=== PATIENT | male | born 1975 | race Caucasian/White ===

== ENCOUNTER 2017-08-01 06:56 | Inpatient (IN) | payer MEDICARE ==
[2017-07-24 14:20] LABS: BASOPHILS # (AUTO) 0.1 X10'3 (0-0.2); BASOPHILS % (AUTO) 1.2 % (0-1); EOSINOPHILS # (AUTO) 0.2 X10'3 (0-0.9); EOSINOPHILS % (AUTO) 2.8 % (0-6); LYMPHOCYTES # (AUTO) 1.7 X10'3 (1.1-4.8); LYMPHOCYTES % (AUTO) 25.5 % (21-51); MEAN CORPUSCULAR HEMOGLOBIN 34.2 PG (27.0-31.0); MEAN CORPUSCULAR VOLUME 94.9 FL (78-98); MEAN PLATELET VOLUME 7.4 FL (7.4-10.4); MONOCYTES # (AUTO) 0.5 X10'3 (0-0.9); MONOCYTES % (AUTO) 7.8 % (2-12); NEUTROPHILS # (AUTO) 4.1 X10'3 (1.8-7.7); NEUTROPHILS % (AUTO) 62.7 % (42-75); PRE OP HEMATOCRIT 45.8 % (42.0-52.0); PRE OP HEMOGLOBIN 16.5 g/dL (14.0-17.9); PRE OP PLATELET COUNT 239 X10'3 (140-440); RED BLOOD COUNT 4.83 X10'6 (4.70-6.10); RED CELL DISTRIBUTION WIDTH 14.3 % (11.5-14.5)
[2017-07-24 14:30] LABS: PRE OP PROTIME 10.4 SECONDS (9.0-12.0)
[2017-07-24 14:35] LABS: ALBUMIN 4.1 G/DL (3.4-5.0); ALBUMIN/GLOBULIN RATIO 1.4 (1.1-1.5); ALKALINE PHOSPHATASE 62 IU/L (46-116); BLOOD UREA NITROGEN 22 MG/DL (7-18); BUN/CREATININE RATIO 15.1 (5.4-32.0); CALCIUM 9.1 MG/DL (8.5-10.1); CHLORIDE 101 MMOL/L (99-107); CREATININE 1.46 MG/DL (0.60-1.10); PRE OP ANION GAP 7 (8-16); PRE OP AST 55 U/L (10-37); PRE OP BILIRUB, TOTAL 0.9 MG/DL (0.0-1.0); PRE OP GLUCOSE 85 MG/DL (70-104); PRE OP SODIUM 137 MMOL/L (135-145); TOTAL CARBON DIOXIDE 28.8 MMOL/L (24-32); eGFR 53 ML/MIN
[2017-07-24 14:38] LABS: PRE OP ALT 82 U/L (30-65)
[2017-07-24 15:13] LABS: PLATELET ESTIMATE NORMAL; SPHEROCYTES 1+
[2017-08-01] VITALS (33 sets, daily range): BP systolic 75–150; BP diastolic 42–70
[~2017-08-01] VITALS: Ht 190.5 cm; Wt 106.2 kg
[~2017-08-01 06:56] MED LIST: ASPI-974 PO; Cefazolin 2GM/100ML NS IVPB IV ONE; LISI-600 PO; PER10325T PO; VANCOMYCIN INJ 1000 MG in NORMAL SALINE 250ml IV.SOLN IV ONE; [UNRECOGNIZED DRUG - CODE] PO; famotidine 20mg tablet PO ONE
[2017-08-01] MEDS: ringers solution, lacted 1,000 ML IV SCH ×2 (07:46→17:19)
[2017-08-01] MEDS ORDERED: MIDAZolam 5mg/5ml vial ONE (08:46)
[2017-08-01] MEDS ORDERED: morphine /PF 1mg/ml 10ml inj. ONE (08:47)
[2017-08-01] MEDS ORDERED: fentaNYL /PF 50mcg/ml 5ml ampule ONE ×2 (08:47→12:44)
[2017-08-01] MEDS ORDERED: propofol inj 20 ML IV ONE (08:49)
[2017-08-01] MEDS ORDERED: ketorolac trometh. 30mg/ml inj. ONE (09:26)
[2017-08-01] MEDS ORDERED: ROPIVAcaine 0.5% (5mg/ml) 30ml vial ONE (09:27)
[2017-08-01] MEDS ORDERED: BUPIVAcaine 0.5% inj/PF 30 ml vial ONE (09:35)
[2017-08-01] MEDS ORDERED: acetaminophen 1,000mg/100ml IV 100 ML IV ONE (09:36)
[2017-08-01] MEDS ORDERED: propofol 1000mg/100ml bottle 100 ML IV ONE (09:37)
[2017-08-01] MEDS ORDERED: ringers solution, lacted 1,000 ML IV SCH (09:47)
[2017-08-01] MEDS ORDERED: ondansetron/PF 4mg/2ml inj IV PRN ×3 (09:50→13:05)
[2017-08-01] MEDS ORDERED: proCHLORperazine 10 MG/2 ml inj IV PRN (09:50)
[2017-08-01] MEDS ORDERED: naloxone 2mg/2ml inj 2 MG in normal saline 500ml IV soln 498 ML IV PRN (09:50)
[2017-08-01] MEDS ORDERED: hydrALAZINE 20mg/ml inj. IV PRN (09:50)
[2017-08-01] MEDS ORDERED: HYDROmorphone inj. 0.5 MG/0.5 ML DISP.SYRIN IV PRN (09:50)
[2017-08-01] MEDS ORDERED: fentaNYL/PF 50MCG/1 ML 2ML syringe IV PRN ×2 (09:50)
[2017-08-01] MEDS ORDERED: labetalol 5mg/ml 20ml inj. IV PRN (09:50)
[2017-08-01] MEDS ORDERED: sevoflurane 250ml liquid IH ONE (09:50)
[2017-08-01] MEDS ORDERED: meperidine/PF 25mg/ml syringe IV PRN ×3 (09:50)
[2017-08-01] MEDS ORDERED: ondansetron/PF 4mg/2ml inj ONE (10:35)
[2017-08-01] MEDS ORDERED: metoclopramide 5 mg/ml inj ONE (10:37)
[2017-08-01] MEDS ORDERED: dexamethasone sod phosphate 4mg/ml inj. ONE (10:37)
[2017-08-01] MEDS ORDERED: naloxone 2mg/2ml inj 2 MG in normal saline 500ml IV soln 500 ML IV PRN (11:06)
[2017-08-01] MEDS ORDERED: diphenhydrAMINE 50 mg/ml inj IV PRN (11:10)
[2017-08-01 11:11] LABS: CLARITY,URINE SLIGHTLY CLOUDY (Clear); COLOR,URINE YELLOW (Yellow); GLUCOSE, URINE NEGATIVE (Neg); KETONES,URINE NEGATIVE (Neg); LEUKOCYTE ESTERASE ,URINE NEGATIVE (Neg); NITRITES, URINE NEGATIVE (Neg); OCCULT BLOOD,URINE NEGATIVE (Neg); PROTEIN,URINE NEGATIVE (Neg); UA COLLECTION TYPE CLN CATCH MIDSTREAM; UROBILINOGEN,URINE 0.2 E.U/dL (0.2-1.0)
[2017-08-01 11:21] LABS: MUCUS STRANDS MODERATE /LPF (Neg); RENAL CELLS, URINE MODERATE /HPF; TRANSITIONAL EPI CELLS,URINE MODERATE /HPF
[2017-08-01 11:22] LABS: HYALINE CASTS 0-3 /LPF (NEGATIVE); SQUAMOUS EPITHELIAL CELL,UR FEW /LPF (FEW)
[2017-08-01 11:23] LABS: BACTERIA,URINE FEW /HPF (Neg); RBC,URINE 0-2 /HPF (0-2); WBC,URINE 0-4 /HPF (0-4)
[2017-08-01] MEDS ORDERED: phenylephrine 10mg/ml inj IV ONE ×3 (12:01→12:23)
[2017-08-01] MEDS ORDERED: metoprolol tartrate 1mg/ml inj IV ONE ×2 (12:19→12:37)
[2017-08-01] MEDS ORDERED: neostigmine methylsulfate 1 MG/ML 10ml vial ONE (12:37)
[2017-08-01] MEDS ORDERED: LIDOcaine 2% (20mg/ml) 5ml vial ONE (12:42)
[2017-08-01] MEDS ORDERED: diphenhydrAMINE 25mg capsule PO PRN ×2 (13:05)
[2017-08-01] MEDS ORDERED: acetaminophen 325mg tablet PO PRN (13:05)
[2017-08-01] MEDS ORDERED: oxyCODONE IR 5mg (immed. release) tablet PO PRN (13:05)
[2017-08-01] MEDS ORDERED: naloxone 0.4 mg/ml inj IV PRN (13:05)
[2017-08-01] MEDS ORDERED: bisacodyl 10mg suppository rectal RC PRN (13:05)
[2017-08-01] MEDS ORDERED: magnesium hydroxide 30ml (MOM) UD suspension PO PRN (13:05)
[2017-08-01] MEDS ORDERED: CADD PCA waste documentation MC PRN (13:05)
[2017-08-01] MEDS ORDERED: ceFAZolin 1GM/D5W- ADD-VANTAGE 50 ML IV ONE (13:20)
[2017-08-01] MEDS: HYDROmorphone/NS 1 mg/ml CADD 50 ML IV SCH ×6 (14:05→23:00)
[2017-08-01] MEDS ORDERED: albumin (Human) 5% 250 ML IV solution IV STA ×4 (14:33→15:47)
[2017-08-01] MEDS ORDERED: albumin (Human) 5% 250ml 250 ML IV ONE (14:37)
[2017-08-01] MEDS ORDERED: calcium chloride 100 MG/1 ML inj IV ONE (15:31)
[2017-08-01] MEDS ORDERED: ePHEDrine 50MG/ML INJ. IV ONE (15:35)
[2017-08-01] MEDS ORDERED: LIDOcaine 1%/PF (10mg/ml) 5ml vial ONE (15:38)
[2017-08-01] MEDS ORDERED: ePHEDrine 50MG/ML INJ. ONE (15:39)
[2017-08-01] MEDS: ceFAZolin 1GM/D5W- ADD-VANTAGE 50 ML IV SCH (16:00)
[2017-08-01] MEDS: potassium cl 20mEq in 1/2 NS 1,000 ML IV SCH ×2 (19:44→22:17)
[2017-08-01] MEDS: ascorbic acid 500mg tablet PO SCH (19:44)
[2017-08-01] MEDS: lisinopril 20mg tablet PO SCH (19:45)
[2017-08-01] MEDS: sennosides 8.6mg tablet PO SCH (19:46)
[2017-08-01] MEDS: sennosides/docusate sodium tablet PO SCH (19:47)
[2017-08-01] MEDS ORDERED: vancomycin/NS 1 GM ADD-VANTAGE 250 ML IV SCH (20:00)
[2017-08-02] VITALS (8 sets, daily range): BP systolic 86–118; BP diastolic 52–80
[2017-08-02] MEDS: ceFAZolin 1GM/D5W- ADD-VANTAGE 50 ML IV SCH (00:09)
[2017-08-02] MEDS: HYDROmorphone/NS 1 mg/ml CADD 50 ML IV SCH ×12 (01:00→23:00)
[2017-08-02] MEDS: potassium cl 20mEq in 1/2 NS 1,000 ML IV SCH ×3 (05:00→21:04)
[2017-08-02 06:14] LABS: BASOPHILS % (AUTO) 0.1 % (0-1); EOSINOPHILS % (AUTO) 0 % (0-6); HEMATOCRIT 28.9 % (42.0-52.0); HEMOGLOBIN 10.3 g/dl (14.0-17.9); LYMPHOCYTES # (AUTO) 0.8 X10'3 (1.1-4.8); LYMPHOCYTES % (AUTO) 8.5 % (21-51); MEAN CORPUSCULAR HEMOGLOBIN 34.2 PG (27.0-31.0); MEAN CORPUSCULAR HGB CONC 35.5 % (33.0-36.5); MEAN CORPUSCULAR VOLUME 96.3 FL (78-98); MEAN PLATELET VOLUME 7.7 FL (7.4-10.4); MONOCYTES # (AUTO) 0.3 X10'3 (0-0.9); MONOCYTES % (AUTO) 3.5 % (2-12); NEUTROPHILS # (AUTO) 8.7 X10'3 (1.8-7.7); NEUTROPHILS % (AUTO) 87.9 % (42-75); PLATELET COUNT 182 X10'3 (140-440); RED CELL DISTRIBUTION WIDTH 13.4 % (11.5-14.5); WHITE BLOOD COUNT 9.9 X10'3 (4.5-11.0)
[2017-08-02 06:26] LABS: ANION GAP 7 (8-16); CHLORIDE 105 MMOL/L (99-107); POTASSIUM 4.7 MMOL/L (3.5-5.1); SODIUM 138 MMOL/L (135-145); TOTAL CARBON DIOXIDE 26.2 MMOL/L (24-32)
[2017-08-02] MEDS: lisinopril 20mg tablet PO SCH ×2 (08:00→19:39)
[2017-08-02] MEDS: atenolol 25mg tablet PO SCH (08:00)
[2017-08-02] MEDS: multivitamins, therapeutics tablet PO SCH (08:38)
[2017-08-02] MEDS: sennosides/docusate sodium tablet PO SCH ×2 (08:38→19:39)
[2017-08-02] MEDS: ascorbic acid 500mg tablet PO SCH ×2 (08:38→19:39)
[2017-08-02] MEDS: enoxaparin 40mg/0.4ml syringe SQ SCH (08:39)
[2017-08-02] MEDS: celeCOXIB 100mg capsule PO SCH (19:39)
[2017-08-02] MEDS: sennosides 8.6mg tablet PO SCH (19:40)
[2017-08-03] MEDS: potassium cl 20mEq in 1/2 NS 1,000 ML IV SCH (00:24)
[2017-08-03] MEDS: HYDROmorphone/NS 1 mg/ml CADD 50 ML IV SCH ×6 (01:00→11:00)
[2017-08-03 05:43] LABS: BASOPHILS % (AUTO) 0.4 % (0-1); EOSINOPHILS # (AUTO) 0.1 X10'3 (0-0.9); EOSINOPHILS % (AUTO) 1.5 % (0-6); HEMATOCRIT 29.6 % (42.0-52.0); HEMOGLOBIN 10.5 g/dl (14.0-17.9); LYMPHOCYTES # (AUTO) 1.5 X10'3 (1.1-4.8); LYMPHOCYTES % (AUTO) 20.3 % (21-51); MEAN CORPUSCULAR HGB CONC 35.6 % (33.0-36.5); MEAN CORPUSCULAR VOLUME 95.5 FL (78-98); MEAN PLATELET VOLUME 7.5 FL (7.4-10.4); MONOCYTES # (AUTO) 0.5 X10'3 (0-0.9); NEUTROPHILS # (AUTO) 5.2 X10'3 (1.8-7.7); NEUTROPHILS % (AUTO) 70.8 % (42-75); PLATELET COUNT 154 X10'3 (140-440); RED CELL DISTRIBUTION WIDTH 13.5 % (11.5-14.5); WHITE BLOOD COUNT 7.3 X10'3 (4.5-11.0)
[2017-08-03 06:00] VITALS: BP 103/64
[2017-08-03] MEDS: lisinopril 20mg tablet PO SCH (07:26)
[2017-08-03] MEDS: multivitamins, therapeutics tablet PO SCH (07:26)
[2017-08-03] MEDS: celeCOXIB 100mg capsule PO SCH (07:26)
[2017-08-03] MEDS: ascorbic acid 500mg tablet PO SCH (07:26)
[2017-08-03] MEDS: sennosides/docusate sodium tablet PO SCH (07:26)
[2017-08-03] MEDS: atenolol 25mg tablet PO SCH (07:26)
[2017-08-03] MEDS: enoxaparin 40mg/0.4ml syringe SQ SCH (07:27)
[2017-08-03] MEDS: oxyCODONE IR 5mg (immed. release) tablet PO PRN ×3 (07:30→12:25)
[2017-08-03 10:00] VITALS: BP 120/67
[2017-08-03] MEDS ORDERED: ENOX40DI11 SQ (10:23)
[2017-08-03] MEDS ORDERED: OXYC-150 PO (10:23)
== END 2017-08-03 12:45 | disposition home or self-care (01) | DRG 470 ==
LOC: PAS 06:56 → ORTHO 4S 13:04
PROVIDERS: ADMIT Orthopaedic Surgery; ATTEND Orthopaedic Surgery
PROC: 0SRB0JZ Replacement of Left Hip Joint with Synthetic Substitute, Open Approach (ICD-10-PCS; principal; 2017-08-01 09:56)
DX: M16.12 Unilateral primary osteoarthritis, left hip (principal); E66.8 Other obesity; D62 Acute posthemorrhagic anemia; G89.4 Chronic pain syndrome; Z96.641 Presence of right artificial hip joint; I10 Essential (primary) hypertension; Z79.82 Long term (current) use of aspirin; Z79.899 Other long term (current) drug therapy; Z86.718 Personal history of other venous thrombosis and embolism; Z56.0 Unemployment, unspecified; Z90.49 Acquired absence of other specified parts of digestive tract; Z80.9 Family history of malignant neoplasm, unspecified; Z68.29 Body mass index [BMI] 29.0-29.9, adult
CPT/HCPCS: 36415; 73502; 76001; 80051; 80053; 81001; 85025; 85610; 85730; 86885; 86900; 86901; 87070; 97110; 97116; 97161; 97530; A6250; A6257; A6258; A6449; A6454; A7000; C1758; C1776; J0131; J0690; J1100; J1170; J1644; J1650; J1885; J2001; J2250; J2274; J2310; J2370; J2405; J2704; J2710; J2765; J2795; J3010; J3370; J3490; J7030; J7120; P9045

== ENCOUNTER 2019-03-18 18:30 | Emergency (ER) | payer MEDICAID, MEDICARE ==
[~2019-03-18] VITALS: Ht 190.5 cm; Wt 118.2 kg
[~2019-03-18 18:30] MED LIST changes: -ASPI-974 PO; -Cefazolin 2GM/100ML NS IVPB IV ONE; +ENOX40DI11 SQ; +OXYC-150 PO; -PER10325T PO; -VANCOMYCIN INJ 1000 MG in NORMAL SALINE 250ml IV.SOLN IV ONE; -famotidine 20mg tablet PO ONE
[2019-03-18 18:54] LABS: BASOPHILS # (AUTO) 0.1 X10'3 (0-0.2); BASOPHILS % (AUTO) 1.3 % (0-1); EOSINOPHILS # (AUTO) 0.1 X10'3 (0-0.9); EOSINOPHILS % (AUTO) 2.6 % (0-6); HEMATOCRIT 42.4 % (42.0-52.0); HEMOGLOBIN 14.9 g/dl (14.0-17.9); LYMPHOCYTES # (AUTO) 1.8 X10'3 (1.1-4.8); LYMPHOCYTES % (AUTO) 34.8 % (21-51); MEAN CORPUSCULAR HEMOGLOBIN 33.5 PG (27.0-31.0); MEAN CORPUSCULAR HGB CONC 35.1 g/dL (33.0-36.5); MEAN CORPUSCULAR VOLUME 95.4 FL (78-98); MEAN PLATELET VOLUME 7.3 FL (7.4-10.4); MONOCYTES # (AUTO) 0.4 X10'3 (0-0.9); MONOCYTES % (AUTO) 7.3 % (2-12); NEUTROPHILS # (AUTO) 2.8 X10'3 (1.8-7.7); PLATELET COUNT 225 X10'3 (140-440); RED BLOOD COUNT 4.45 X10'6 (4.70-6.10); RED CELL DISTRIBUTION WIDTH 13.6 % (11.5-14.5); WHITE BLOOD COUNT 5.2 X10'3 (4.5-11.0)
[2019-03-18 19:09] LABS: ALBUMIN 4.1 G/DL (3.4-5.0); ALBUMIN/GLOBULIN RATIO 1.5 (1.1-1.5); ANION GAP 12 (8-16); ASPARTATE AMINO TRANSFERASE 61 U/L (10-37); BILIRUBIN,TOTAL 0.6 MG/DL (0.1-1.0); BLOOD UREA NITROGEN 9 MG/DL (7-18); CALCIUM 8.1 MG/DL (8.5-10.1); CHLORIDE 105 MMOL/L (99-107); GLUCOSE 90 MG/DL (70-104); POTASSIUM 3.6 MMOL/L (3.5-5.1); SODIUM 140 MMOL/L (135-145); TOTAL CARBON DIOXIDE 23.4 MMOL/L (24-32); TOTAL PROTEIN 6.9 G/DL (6.4-8.2); eGFR > 90 ML/MIN
[2019-03-18 19:10] LABS: ALANINE AMINOTRANSFERASE 119 U/L (12-78); ALKALINE PHOSPHATASE 76 IU/L (46-116)
[2019-03-18] MEDS ORDERED: mag hydrox/Alum hydrox/simeth 30ml oral suspension PO ONE (19:15)
[2019-03-18] MEDS ORDERED: LIDOcaine Viscous 15ml cup TP ONE (19:15)
[2019-03-18] MEDS ORDERED: normal saline 1000ML IV soln IVB ONE (19:15)
[2019-03-18 19:17] LABS: MAGNESIUM 2.3 MG/DL (1.5-2.4)
[2019-03-18 19:39] LABS: LIPASE 157 U/L (73-393)
--- NOTE | 2019-03-18 21:41 | NUR ---
Pt laying in bed, appears in no acute distress.
[2019-03-18 23:02] VITALS: BP 167/101
== END 2019-03-18 23:05 | disposition home or self-care (01) ==
LOC: ER 18:32
DX: R07.89 Other chest pain (principal); R10.11 Right upper quadrant pain; F10.99 Alcohol use, unspecified with unspecified alcohol-induced disorder; Z79.899 Other long term (current) drug therapy; Y90.9 Presence of alcohol in blood, level not specified
CPT/HCPCS: 36415; 80053; 83690; 83735; 83880; 84484; 85025; 93005; 99284; J7030